=== PATIENT | male | born 1970 | race Two or more races ===

== ENCOUNTER 2016-06-17 10:20 | Emergency (ER) | payer MEDICAID ==
[~2016-06-17] VITALS: Ht 172.7 cm; Wt 70.3 kg
[2016-06-17 10:41] VITALS: BP 111/76
== END 2016-06-17 11:22 | disposition home or self-care (01) ==
LOC: ER 10:20
DX: G89.29 Other chronic pain (principal); M54.5 Low back pain; Z76.0 Encounter for issue of repeat prescription; F32.9 Major depressive disorder, single episode, unspecified; Z88.6 Allergy status to analgesic agent

== ENCOUNTER 2016-06-27 15:14 | Emergency (ER) | payer MEDICAID ==
[~2016-06-27] VITALS: Ht 172.7 cm; Wt 69.9 kg
[2016-06-27 16:18] VITALS: BP 118/78
== END 2016-06-27 16:37 | disposition home or self-care (01) ==
LOC: ER 15:17
DX: G89.29 Other chronic pain (principal); M54.5 Low back pain; Z76.0 Encounter for issue of repeat prescription; Z88.4 Allergy status to anesthetic agent

== ENCOUNTER 2016-07-12 10:49 | Emergency (ER) | payer MEDICAID ==
[~2016-07-12] VITALS: Ht 175.3 cm; Wt 70.3 kg
[2016-07-12 12:49] VITALS: BP 146/99
== END 2016-07-12 13:05 | disposition home or self-care (01) ==
LOC: ER 10:49
DX: G89.29 Other chronic pain (principal); M54.5 Low back pain; F41.9 Anxiety disorder, unspecified; Z76.0 Encounter for issue of repeat prescription; Z88.8 Allergy status to other drugs, medicaments and biological substances

== ENCOUNTER 2016-12-26 11:24 | Emergency (ER) | payer MEDICAID ==
[~2016-12-26] VITALS: Ht 175.3 cm; Wt 70.3 kg
[2016-12-26 11:41] VITALS: BP 139/100
[2016-12-26] MEDS ORDERED: LIDOCAINE 1% HCL (LOCAL ANESTH.) INJ 20ML MDV IJ ONE (12:30)
== END 2016-12-26 13:30 | disposition home or self-care (01) ==
LOC: ER 11:24
DX: S61.210A Laceration without foreign body of right index finger without damage to nail, initial encounter (principal); W22.8XXA Striking against or struck by other objects, initial encounter; Y93.89 Activity, other specified; Y99.8 Other external cause status; Y92.89 Other specified places as the place of occurrence of the external cause; Z88.6 Allergy status to analgesic agent
CPT/HCPCS: 12002; 73140; 99283; J2001

== ENCOUNTER 2017-01-06 15:29 | Emergency (ER) | payer MEDICAID ==
[~2017-01-06] VITALS: Ht 172.7 cm; Wt 70.3 kg
[2017-01-06 16:25] VITALS: BP 126/84
== END 2017-01-06 16:54 | disposition home or self-care (01) ==
LOC: ER 15:56
DX: S61.210D Laceration without foreign body of right index finger without damage to nail, subsequent encounter (principal); X58.XXXD Exposure to other specified factors, subsequent encounter; Y92.89 Other specified places as the place of occurrence of the external cause; Y99.8 Other external cause status; Z48.02 Encounter for removal of sutures; Z88.8 Allergy status to other drugs, medicaments and biological substances